=== PATIENT | female | born 1990 | race Two or more races ===

== ENCOUNTER 2022-06-17 10:28 | Emergency (ER) | payer OTHER ==
[2022-06-17 10:37] VITALS: BP 115/76; PULSE 80; RESP 18; TEMP 98.1; BMI 28.6
[2022-06-17] MEDS ORDERED: ACETAMINOPHEN 1000 MG/100 ML BAG IVPB ONE (12:13)
[2022-06-17] MEDS ORDERED: ONDANSETRON 4 MG/2 ML VIAL IVPUSH ONE (12:54)
[2022-06-17] MEDS ORDERED: ONDANSETRON 4 MG/2 ML VIAL ONE (13:06)
[2022-06-17] MEDS ORDERED: ACETAMINOPHEN INJECTION 100 ML IVPB ONE (13:06)
[2022-06-17 13:34] LABS: BASO % 0.4 % (0-2.0); EOS % 1.5 % (0-4.5); HEMATOCRIT 41.5 % (32.4-45.2); HEMOGLOBIN 13.7 GM/dL (10.7-15.3); LYMPH % 19.5 % (8-40); MCH 27.8 pg (25.7-33.7); MEAN CELL VOLUME 84.3 fl (80-96); MEAN PLT VOLUME 7.3 fl (7.5-11.1); MONO % 8.6 % (3.8-10.2); PLATELET COUNT 415 10^3/uL (134-434); RBC 4.92 M/mm3 (3.60-5.2); RDW 14.5 % (11.6-15.6); WHITE BLOOD COUNT 11.8 K/mm3 (4.0-10.0)
[2022-06-17 13:37] LABS: HCG,QUALITATIVE URINE Positive
[2022-06-17 13:39] LABS: EPI CELLS 12 /uL (0-25.1); HYALINE CASTS 3 /uL (0-3.1); PH,URINE 5.5 (5.0-8.0); URINE APPEARANCE CLEAR; URINE BACTERIA 287 /uL (0-1359); URINE BILIRUBIN NEGATIVE (NEGATIVE); URINE COLOR YELLOW; URINE GLUCOSE (UA) NEGATIVE (NEGATIVE); URINE KETONE TRACE (NEGATIVE); URINE LEUK ESTERASE 2+ (NEGATIVE); URINE NITRITE NEGATIVE (NEGATIVE); URINE PROTEIN NEGATIVE (NEGATIVE); URINE UROBILINOGEN 0.2 mg/dL (0.2-1.0); URINE WBC 179 /uL (0-25.8)
[2022-06-17 14:17] LABS: CALCIUM 9.2 mg/dL (8.5-10.1)
[2022-06-17 14:18] LABS: ALBUMIN 3.5 g/dl (3.4-5.0); BLOOD UREA NITROGEN 14.1 mg/dL (7-18)
[2022-06-17 14:21] LABS: CREATININE 0.6 mg/dL (0.55-1.3)
[2022-06-17 14:23] LABS: BILIRUBIN,TOTAL 0.3 mg/dL (0.2-1); TOT PROT 7.3 g/dl (6.4-8.2)
[2022-06-17 15:14] LABS: URINE RBC 8.4 /uL (0-23.9)
[2022-06-17] MEDS ORDERED: NITROFURANTOIN MACROCRYSTAL 50 MG CAPSULE (FP) PO SCH (16:00)
== END 2022-06-17 18:45 | disposition home or self-care (01) ==
LOC: JER 10:28
PROC: 3E0333Z Introduction of Anti-inflammatory into Peripheral Vein, Percutaneous Approach (ICD-10-PCS; principal; 2022-06-17)
PROC: 3E033GC Introduction of Other Therapeutic Substance into Peripheral Vein, Percutaneous Approach (ICD-10-PCS; 2022-06-17)
DX: O34.81 Maternal care for other abnormalities of pelvic organs, first trimester (principal); O23.12 Infections of bladder in pregnancy, second trimester; O26.891 Other specified pregnancy related conditions, first trimester; R10.2 Pelvic and perineal pain
CPT/HCPCS: 36415; 76817-TC; 80053; 81003; 84702; 84703; 85025; 87086; 99284-25

== ENCOUNTER 2022-06-19 07:12 | Emergency (ER) | payer OTHER ==
[2022-06-19 07:32] VITALS: BP 114/79; PULSE 86; RESP 17; TEMP 98.6; BMI 28.6
[2022-06-19] MEDS ORDERED: SODIUM CHLORIDE 1,000 ML IV STA (07:57)
[2022-06-19 09:54] LABS: BASO % 0.2 % (0-2.0); EOS % 1.2 % (0-4.5); HEMATOCRIT 43.5 % (32.4-45.2); HEMOGLOBIN 14.4 GM/dL (10.7-15.3); LYMPH % 16.7 % (8-40); MCH 27.9 pg (25.7-33.7); MCHC 33.1 g/dl (32.0-36.0); MEAN CELL VOLUME 84.2 fl (80-96); MEAN PLT VOLUME 6.8 fl (7.5-11.1); MONO % 7.1 % (3.8-10.2); NEUT % 74.8 % (42.8-82.8); PLATELET COUNT 405 10^3/uL (134-434); RBC 5.16 M/mm3 (3.60-5.2); RDW 14.3 % (11.6-15.6); WHITE BLOOD COUNT 12.9 K/mm3 (4.0-10.0)
[2022-06-19 10:22] LABS: CALCIUM 9.4 mg/dL (8.5-10.1)
[2022-06-19 10:23] LABS: ALBUMIN 3.9 g/dl (3.4-5.0); BLOOD UREA NITROGEN 9.3 mg/dL (7-18)
[2022-06-19 10:25] LABS: CREATININE 0.6 mg/dL (0.55-1.3)
[2022-06-19 10:27] LABS: BILIRUBIN,TOTAL 0.4 mg/dL (0.2-1); TOT PROT 7.6 g/dl (6.4-8.2)
[2022-06-19 12:00] LABS: HCG,QUALITATIVE URINE Positive
[2022-06-19 12:03] LABS: EPI CELLS 28 /uL (0-25.1); HYALINE CASTS 2 /uL (0-3.1); URINE APPEARANCE CLEAR; URINE BACTERIA 28 /uL (0-1359); URINE BILIRUBIN NEGATIVE (NEGATIVE); URINE COLOR YELLOW; URINE GLUCOSE (UA) NEGATIVE (NEGATIVE); URINE KETONE NEGATIVE (NEGATIVE); URINE LEUK ESTERASE 1+ (NEGATIVE); URINE NITRITE NEGATIVE (NEGATIVE); URINE PROTEIN NEGATIVE (NEGATIVE); URINE RBC 219 /uL (0-23.9); URINE UROBILINOGEN 0.2 mg/dL (0.2-1.0); URINE WBC 72 /uL (0-25.8)
== END 2022-06-19 11:20 | disposition home or self-care (01) ==
LOC: JER 07:12
PROC: 3E0337Z Introduction of Electrolytic and Water Balance Substance into Peripheral Vein, Percutaneous Approach (ICD-10-PCS; principal; 2022-06-19)
DX: N93.9 Abnormal uterine and vaginal bleeding, unspecified (principal)
CPT/HCPCS: 36415; 76817-TC; 80053; 81003; 84702; 84703; 85025; 86850; 86900; 86901; 87086; 99284-25

== ENCOUNTER 2022-08-04 17:02 | Emergency (ER) | payer OTHER ==
[2022-08-04 17:24] VITALS: BP 139/86; PULSE 86; RESP 19; TEMP 98.2; BMI 26.4
[2022-08-04] MEDS ORDERED: ACETAMINOPHEN 500 MG TABLET (FP) PO ONE (18:55)
[2022-08-04] MEDS ORDERED: ACETAMINOPHEN 500 MG TABLET (FP) ONE (18:59)
[2022-08-04 19:29] LABS: EPI CELLS 13 /uL (0-25.1); HYALINE CASTS 0 /uL (0-3.1); PH,URINE 5.5 (5.0-8.0); URINE APPEARANCE CLEAR; URINE BACTERIA 477 /uL (0-1359); URINE BILIRUBIN NEGATIVE (NEGATIVE); URINE COLOR YELLOW; URINE GLUCOSE (UA) NEGATIVE (NEGATIVE); URINE KETONE TRACE (NEGATIVE); URINE LEUK ESTERASE 1+ (NEGATIVE); URINE NITRITE NEGATIVE (NEGATIVE); URINE PROTEIN NEGATIVE (NEGATIVE); URINE RBC 41 /uL (0-23.9); URINE UROBILINOGEN 0.2 mg/dL (0.2-1.0); URINE WBC 159 /uL (0-25.8)
[2022-08-04 21:44] LABS: BASO % 0.3 % (0-2.0); EOS % 2.4 % (0-4.5); HEMATOCRIT 39.4 % (32.4-45.2); HEMOGLOBIN 13.3 GM/dL (10.7-15.3); LYMPH % 18.2 % (8-40); MCH 28.8 pg (25.7-33.7); MCHC 33.7 g/dl (32.0-36.0); MEAN CELL VOLUME 85.5 fl (80-96); MEAN PLT VOLUME 6.9 fl (7.5-11.1); NEUT % 70.1 % (42.8-82.8); PLATELET COUNT 324 10^3/uL (134-434); RBC 4.61 M/mm3 (3.60-5.2); RDW 14.4 % (11.6-15.6); WHITE BLOOD COUNT 13.7 K/mm3 (4.0-10.0)
[2022-08-04 21:47] LABS: CALCIUM 8.6 mg/dL (8.5-10.1)
[2022-08-04 21:48] LABS: BLOOD UREA NITROGEN 12.4 mg/dL (7-18)
[2022-08-04 21:51] LABS: CREATININE 0.7 mg/dL (0.55-1.3)
[2022-08-04 21:53] LABS: BILIRUBIN,TOTAL 0.2 mg/dL (0.2-1); TOT PROT 6.4 g/dl (6.4-8.2)
== END 2022-08-04 22:42 | disposition home or self-care (01) ==
LOC: JER 17:02
DX: O23.592 Infection of other part of genital tract in pregnancy, second trimester (principal); N30.90 Cystitis, unspecified without hematuria; N83.202 Unspecified ovarian cyst, left side; Z3A.14 14 weeks gestation of pregnancy
CPT/HCPCS: 36415; 76775-TC; 76815-TC; 80053; 81003; 85025; 87086; 99284-25